=== PATIENT | female | born 1965 | race Two or more races ===

== ENCOUNTER 2020-05-15 09:01 | Outpatient (CLI) | payer OTHER | END 2020-05-15 23:59 | disposition home or self-care (01) | LOC: MSC 09:01 | PROVIDERS: ATTEND Internal Medicine | DX: M75.20 Bicipital tendinitis, unspecified shoulder (principal); K85.90 Acute pancreatitis without necrosis or infection, unspecified; K76.0 Fatty (change of) liver, not elsewhere classified; E55.9 Vitamin D deficiency, unspecified; E03.9 Hypothyroidism, unspecified; I10 Essential (primary) hypertension; Z85.3 Personal history of malignant neoplasm of breast ==

== ENCOUNTER 2020-08-14 08:31 | Outpatient (CLI) | payer OTHER | END 2020-08-14 23:59 | disposition home or self-care (01) | LOC: MSC 08:31 | PROVIDERS: ATTEND Internal Medicine | DX: M25.473 Effusion, unspecified ankle (principal); M75.20 Bicipital tendinitis, unspecified shoulder; K76.0 Fatty (change of) liver, not elsewhere classified; I10 Essential (primary) hypertension; E03.9 Hypothyroidism, unspecified; K85.90 Acute pancreatitis without necrosis or infection, unspecified; E55.9 Vitamin D deficiency, unspecified; H54.7 Unspecified visual loss; Z85.3 Personal history of malignant neoplasm of breast ==